=== PATIENT | female | born 1980 | race Hispanic/Latino ===

== ENCOUNTER 2018-04-15 16:33 | Emergency (ER) | payer OTHER ==
[~2018-04-15] VITALS: Ht 170.2 cm; Wt 68.0 kg
[2018-04-15] MEDS ORDERED: ALBUTEROL/IPRATROPIUM 3 ML NEB NEB ONE (17:15)
[2018-04-15 17:31] LABS: BASOPHILS # (AUTO) 0.1 (0.0-0.1); BASOPHILS % 0.4 % (0.0-1.0); EOSINOPHILS % 0.1 % (0.0-6.0); HEMATOCRIT 35.7 % (34.2-44.1); HEMOGLOBIN 12.2 g/dL (12.0-16.0); LYMPHOCYTES # (AUTO) 2.7 (1.0-3.2); LYMPHOCYTES % 20.4 % (18.0-39.1); MEAN CORPUSCULAR HEMOGLOBIN 29.9 pg (28-32); MEAN CORPUSCULAR HGB CONC 34.2 g/dL (31-35); MEAN CORPUSCULAR VOLUME 87.5 fL (81-99); MONOCYTES # (AUTO) 0.9 (0.2-0.8); NEUTROPHILS # (AUTO) 9.3 (2.1-6.9); PLATELET COUNT 390 x10e3/uL (140-360); RED BLOOD COUNT 4.08 x10e6/uL (3.6-5.1); RED CELL DISTRIBUTION WIDTH 12.3 % (11.7-14.4)
[2018-04-15 17:45] LABS: ANION GAP 13.4 mmol/L (8-16); BLOOD UREA NITROGEN 15 mg/dL (7-26); BUN/CREATININE RATIO 22 (6-25); CALCIUM 9.5 mg/dL (8.4-10.2); CARBON DIOXIDE 24 mmol/L (22-29); CHLORIDE 105 mmol/L (98-107); CREATININE, SERUM 0.69 mg/dL (0.57-1.11); EST GLOMERULAR FILTRATION RATE > 60 ML/MIN (60-); GLUCOSE 167 mg/dL (74-118); POTASSIUM 3.4 mmol/L (3.5-5.1); SODIUM 139 mmol/L (136-145)
--- NOTE | 2018-04-15 18:30 | Diagnostic Imaging Report ---
PROCEDURE: Frontal and lateral views of the chest. COMPARISON: None. INDICATIONS: cough, right side pain FINDINGS: Lines/tubes: None. Lungs: The lungs are well inflated. Minimal retrocardiac opacification. Pleura: There is no pleural effusion or pneumothorax. Heart and mediastinum: The heart and the mediastinum are normal. Bones: No acute bony abnormality. IMPRESSION: Minimal retrocardiac opacification. Developing infiltrate cannot be excluded. Dictated by: Kevin Astorga M.D. on 04/15/2018 at 18:33 Electronically approved by: Kevin Astorga M.D. on 04/15/2018 at 18:33
[2018-04-15] MEDS ORDERED: LEVOFLOXACIN 500MG/D5W 100ML 100 ML IV STA (18:36)
[2018-04-15 20:01] VITALS: BP 119/77
== END 2018-04-15 20:16 | disposition home or self-care (01) ==
LOC: ER 16:33
DX: R06.00 Dyspnea, unspecified (principal); R05 Cough; R07.89 Other chest pain; J15.9 Unspecified bacterial pneumonia; J45.909 Unspecified asthma, uncomplicated
CPT/HCPCS: 36415; 71046; 80048; 83518; 85025; 87040; 87070; 94640; 99284; J1956

== ENCOUNTER 2018-04-25 12:00 | Emergency (ER) | payer OTHER ==
[~2018-04-25] VITALS: Ht 170.2 cm; Wt 68.0 kg
--- OUTSIDE RECORDS SUMMARY | 2018-04-25 12:03 | XMS REPORT ---
Author Author [facility] Address Unknown Phone Unavailable Care Team Providers Care Land Reclamation Specialist Name Role Phone RHYS AGRAWAL Unavailable Unavailable Problems This patient has no known problems. Allergies, Adverse Reactions, Alerts This patient has no known allergies or adverse reactions. Medications This patient has no known medications. Results Test Description Test Time Test Comments Text Results Atomic Results Result Comments CHEST 2 VIEWS [place] [address] Patient Name: SAPNA CHAVEZ MR #: [id number] : 1980 Age/Sex: 38/F Req #: [id number] Adm Physician: Ordered by: RHYS AGRAWAL DO Report #: [id number] Location: ER Room/Bed: Procedure: [id number] DX/CHEST 2 VIEWS Exam Date: Exam Time: REPORT STATUS: Signed PROCEDURE: Frontal and lateral views of the chest. COMPARISON: None. INDICATIONS: cough, right side pain FINDINGS: Lines/tubes: None. Lungs: The lungs are well inflated. Minimal retrocardiac opacification. Pleura: There is no pleural effusion or pneumothorax. Heart and mediastinum: The heart and the mediastinum are normal. Bones: No acute bony abnormality. IMPRESSION: Minimal retrocardiac opacification. Developing infiltrate cannot be excluded. Dictated by: Kevin aDmon M.D. on 04/15/2018 at 18:33 Electronically approved by: Kevin Damon M.D. on 04/15/2018 at 18:33 Dictated By: KEVIN DAMON MD 32 Transcribed By: KEO on 04/15/181832 COPY TO: RHYS AGRAWAL DO
--- OUTSIDE RECORDS SUMMARY | 2018-04-25 12:04 | XMS REPORT | Continuity of Care Document ---
Author Author [facility] Organization [facility] Address [address] [place] [address] Phone Unavailable Care Team Providers Care Edi Coordinator Name Role Phone NO, PCP PCP Unavailable Insurance Providers Guarantor Barbara Chavez Address [address] [place] [address] Email [email or web address] Payer Self Pay Subscriber's Name Barbara Chavez Advance Directives Directive Response Recorded Date/Time Does the patient have an advance directive? No 02/24/16 6:37pm If yes, is advance directive on file with [facility]? No 02/24/16 6:37pm If not on file with [facility] will patient provide a copy? No 02/24/16 6:37pm Problems No problem information available. Medications No known medications. Social History Smoking Status Start Date Stop Date Unknown if ever smoked Hospital Discharge Instructions No hospital discharge instruction information available. Plan of Care Discharge Date 04/15/18 8:16pm Disposition HOME, SELF-CARE Condition at Discharge Stable Instructions/Education Provided Pneumonia - Bacterial Forms Provided Work/School Excuse Prescriptions See Medication Section Referrals NO,FAMILY Additional Instructions/Education TAKE LEVAQUIN PRESCRIBED Functional Status No functional status information available. Allergies, Adverse Reactions, Alerts No known allergies. Immunizations No immunization information available. Vital Signs Acute Vital Signs Vital Response Date/Time Temperature (Fahrenheit) 98.0 degrees F (97.6 - 99.5) 04/15/2018 8:01pm Pulse Pulse Rate (adult) 77 bpm (60 - 90) 04/15/2018 8:01pm Respiratory Rate 18 bpm (12 - 24) 04/15/2018 8:01pm Blood Pressure 119/77 mm Hg 04/15/2018 8:01pm Height 5 ft 7 in 04/15/2018 4:45pm Weight 150 lb 04/15/2018 4:45pm Body Mass Index 23.5 kg/m^2 04/15/2018 4:45pm Results Laboratory Results Test Name Result Units Flags Reference Collection Date/Time Result Date/ Time Comments White Blood Count 13.07 x10e3/uL H 4.8-10.8 04/15/2018 5:20pm 2017 5:31pm Red Blood Count 4.08 x10e6/uL 3.6-5.1 04/15/2018 5:2004/15/2018 5: 31pm Hemoglobin 12.2 g/dL 12.0-16.0 04/15/2018 5:2004/15/2018 5:31pm Hematocrit 35.7 % 34.2-44.1 04/15/2018 5:2004/15/2018 5:31pm Mean Corpuscular Volume 87.5 fL 81-99 04/15/2018 5:2004/15/2018 5: 31pm Mean Corpuscular Hemoglobin 29.9 pg 28-32 04/15/2018 5:04/15/2018 5:31pm Mean Corpuscular Hemoglobin Concent 34.2 g/dL 31-35 04/15/2018 5:2004/15/2018 5:31pm Red Cell Distribution Width 12.3 % 11.7-14.4 04/15/2018 5:202017 5:31pm Platelet Count 390 x10e3/uL H 140-360 04/15/2018 5:2004/15/2018 5: 31pm Neutrophils (%) (Auto) 71.0 % 38.7-80.0 04/15/2018 5:04/15/2018 5: 31pm Lymphocytes (%) (Auto) 20.4 % 18.0-39.1 04/15/2018 5:2004/15/2018 5: 31pm Monocytes (%) (Auto) 7.0 % 4.4-11.3 04/15/2018 5:04/15/2018 5: 31pm Eosinophils (%) (Auto) 0.1 % 0.0-6.0 04/15/2018 5:04/15/2018 5: 31pm Basophils (%) (Auto) 0.4 % 0.0-1.0 04/15/2018 5:04/15/2018 5:31pm IM GRANULOCYTES % 1.1 % H 0.0-1.0 04/15/2018 5:04/15/2018 5:31pm Neutrophils # (Auto) 9.3 H 2.1-6.9 04/15/2018 5:04/15/2018 5: 31pm Lymphocytes # (Auto) 2.7 1.0-3.2 04/15/2018 5:04/15/2018 5:31pm Monocytes # (Auto) 0.9 H 0.2-0.8 04/15/2018 5:04/15/2018 5:31pm Eosinophils # (Auto) 0.0 0.0-0.4 04/15/2018 5:04/15/2018 5:31pm Basophils # (Auto) 0.1 0.0-0.1 04/15/2018 5:04/15/2018 5:31pm Absolute Immature Granulocyte (auto 0.15 x10e3/uL H 0-0.1 04/15/2018 5: 04/15/2018 5:31pm Sodium Level 139 mmol/L 136-145 04/15/2018 5:04/15/2018 5:45pm Potassium Level 3.4 mmol/L L 3.5-5.1 04/15/2018 5:04/15/2018 5: 45pm Chloride Level 105 mmol/L 98-107 04/15/2018 5:04/15/2018 5:45pm Carbon Dioxide Level 24 mmol/L 22-29 04/15/2018 5:04/15/2018 5: 45pm Anion Gap 13.4 mmol/L 8-16 04/15/2018 5:04/15/2018 5:45pm Blood Urea Nitrogen 15 mg/dL 7-04/15/2018 5:04/15/2018 5:45pm Creatinine 0.69 mg/dL 0.57-1.11 04/15/2018 5:20pm 04/15/2018 5:45pm BUN/Creatinine Ratio 22 6-25 04/15/2018 5:20pm 04/15/2018 5:45pm Estimat Glomerular Filtration Rate > 60 ML/MIN 60- 04/15/2018 5:20pm 5:45pm Ranges were taken from the National Kidney Disease Education Program and the National [employer] literature. Reference ranges: 60 or greater: Normal 16-59 (for 3 consecutive months): Chronic kidney disease 15 or less: Kidney failure Glucose Level 167 mg/dL H 74-118 04/15/2018 5:20pm 04/15/2018 5:45pm Calcium Level 9.5 mg/dL 8.4-10.2 04/15/2018 5:20pm 04/15/2018 5:45pm Group A Streptococcus Screen NEGATIVE NEGATIVE 04/15/2018 5:20pm 5:37pm Procedures Procedure Status Date Provider(s) X-ray of chest, two views Active 04/15/18 RHYS AGRAWAL DO Encounters Encounter Location Arrival/Admit Date Discharge/Depart Date Attending Provider Departed Emergency Room [facility] 04/15/18 4:33pm 8:16pm RHYS AGRAWAL DO
--- NOTE | 2018-04-25 14:39 | Diagnostic Imaging Report ---
PROCEDURE:CHEST 2 VIEWS TECHNIQUE:PA and lateral chest INDICATION:Pneumonia COMPARISON:[facility], , CHEST 2 VIEWS, 04/15/2018, 17:58. FINDINGS: Lungs are clear and symmetrically inflated. No pleural effusions. Normal heart size, mediastinal contour, and pulmonary vasculature. Pectus excavatum. CONCLUSION: No evidence of pneumonia. Dictated by: Skinny Barillas M.D. on 04/25/2018 at 14:42 Electronically approved by: Skinny Barillas M.D. on 04/25/2018 at 14:42
[2018-04-25 15:13] VITALS: BP 110/77
== END 2018-04-25 15:15 | disposition home or self-care (01) ==
LOC: ER 12:00
DX: R05 Cough (principal); R06.00 Dyspnea, unspecified; Z87.01 Personal history of pneumonia (recurrent)
CPT/HCPCS: 71046; 99284